=== PATIENT | female | born 1975 | race Caucasian/White ===

== ENCOUNTER → 2016-09-03 | Outpatient (CLI) | payer OTHER | LOC: FIMAGING 14:21 | PROVIDERS: ATTEND Registered Nurse | DX: M50.30 Other cervical disc degeneration, unspecified cervical region (principal); M47.892 Other spondylosis, cervical region; N87.9 Dysplasia of cervix uteri, unspecified; G43.809 Other migraine, not intractable, without status migrainosus ==

== ENCOUNTER → 2017-05-02 | Outpatient (CLI) | payer OTHER | LOC: FLAB 04-30 16:38 → FIMAGING 04-30 16:43 → EDSTATUS 04-30 16:43 → FIMAGING 20:16 | PROVIDERS: ATTEND Anesthesiology Pain Medicine | DX: M53.85 Other specified dorsopathies, thoracolumbar region (principal) ==

== ENCOUNTER → 2017-07-26 | Outpatient (CLI) | payer OTHER | LOC: FIMAGING 17:15 | PROVIDERS: ATTEND Anesthesiology Pain Medicine | DX: M21.751 Unequal limb length (acquired), right femur (principal); M41.85 Other forms of scoliosis, thoracolumbar region ==

== ENCOUNTER → 2018-11-11 | Outpatient (CLI) | payer OTHER ==
[~2018-11-11] MED LIST: PHENYLEPHRINE 0.5% NASAL 15 ML SPRAY ONE
== END ==
LOC: FIMAGING 18:26
PROVIDERS: ATTEND Family Medicine
DX: M54.2 Cervicalgia (principal)